=== PATIENT | male | born 1995 | race Caucasian/White ===

== ENCOUNTER → 2017-08-19 | Outpatient (CLI) | payer OTHER | LOC: M ADAMS 13:04 | DX: M25.532 Pain in left wrist (principal) ==

== ENCOUNTER 2020-07-15 11:34 | Emergency (ER) | payer OTHER, BC ==
[~2020-07-15] VITALS: Ht 185.4 cm; Wt 114.0 kg
--- NOTE | 2020-07-15 12:16 | REP ---
INDICATION: head injury. COMPARISON: None. TECHNIQUE: Helical scanning is acquired. 5 mm axial images were reformatted. Coronal MPR images were generated. FINDINGS: Bone window settings demonstrate an intact bony calvarium. There is no evidence of skull fracture or incidental bony calvarial lesion. The visualized paranasal sinuses appear clear. No intraorbital abnormality is seen. On soft tissue window setting images; the lateral, third, and fourth ventricles are normal in size and position. Kang-white differentiation pattern is normal above and below the tentorium. There are is no evidence of intracranial hemorrhage. No mass, edema, infarction, or midline shift is seen. No extra-axial fluid collection is appreciated. IMPRESSION: Negative noncontrast head CT. <Electronically signed by Vivek Pineda > 07/15/20 [id number]
[2020-07-15] MEDS: ONDANSETRON 4 MG TAB PO ONE ×2 (12:52→12:57)
[2020-07-15] MEDS ORDERED: ZOFR4TAB16 PO (13:05)
[2020-07-15 13:17] VITALS: BP 123/86
== END 2020-07-15 13:26 | disposition home or self-care (01) ==
LOC: M ED 11:34
DX: S00.93XA Contusion of unspecified part of head, initial encounter (principal); W22.8XXA Striking against or struck by other objects, initial encounter; Y92.89 Other specified places as the place of occurrence of the external cause; Y93.9 Activity, unspecified; Y99.0 Civilian activity done for income or pay; Z88.0 Allergy status to penicillin

== ENCOUNTER 2021-08-15 11:52 | Emergency (ER) | payer OTHER, BC ==
[~2021-08-15] VITALS: Ht 185.4 cm; Wt 102.3 kg
[~2021-08-15 11:52] MED LIST: ZOFR4TAB16 PO
[2021-08-15] MEDS ORDERED: REST0.05 OP (11:58)
[2021-08-15] MEDS: ONDANSETRON 4 MG ORAL DISINTEGRATING TAB PO ONE (13:16)
[2021-08-15] MEDS ORDERED: ONDA4TAB6 PO (13:25)
[2021-08-15 13:41] VITALS: BP 134/83
== END 2021-08-15 13:43 | disposition home or self-care (01) ==
LOC: M ED 11:52
DX: S06.0X0A Concussion without loss of consciousness, initial encounter (principal); S00.03XA Contusion of scalp, initial encounter; W22.09XA Striking against other stationary object, initial encounter; Y92.59 Other trade areas as the place of occurrence of the external cause; Y93.89 Activity, other specified; Y99.8 Other external cause status; Z79.899 Other long term (current) drug therapy
CPT/HCPCS: 70450; 99283; Q0162

== ENCOUNTER 2021-11-26 15:08 | Emergency (ER) | payer BC, OTHER ==
[~2021-11-26] VITALS: Ht 185.4 cm; Wt 111.0 kg
[~2021-11-26 15:08] MED LIST changes: +ONDA4TAB6 PO; +REST0.05 OP
[2021-11-26] MEDS ORDERED: LIDOCAINE 5% (LIDODERM) PATCH TD ONE (16:25)
[2021-11-26] MEDS ORDERED: diazePAM 10 MG TAB PO ONE (16:25)
[2021-11-26] MEDS ORDERED: KETOROLAC 60MG 2ML VIAL IM ONE (16:25)
[2021-11-26] MEDS ORDERED: ASPE4PAD TOP (17:49)
[2021-11-26] MEDS ORDERED: NAPR-837 PO (17:49)
[2021-11-26] MEDS ORDERED: PRED20TA PO (17:49)
[2021-11-26] MEDS ORDERED: METH-1165 PO (17:49)
[2021-11-26 17:57] VITALS: BP 136/65
[2021-11-27] MEDS ORDERED: **NOTE PATIENT COMMENT** MISC XX ONE (05:00)
== END 2021-11-26 18:03 | disposition home or self-care (01) ==
LOC: M ED 15:08
DX: M54.50 Low back pain, unspecified (principal); Z88.1 Allergy status to other antibiotic agents; Z79.899 Other long term (current) drug therapy
CPT/HCPCS: 72110; 96372; 99283; J1885

== ENCOUNTER → 2023-04-26 | Outpatient (CLI) | payer BC, OTHER ==
[~2023-04-26] MED LIST changes: +ASPE4PAD TOP; +METH-1165 PO; +NAPR-837 PO; +PRED20TA PO
== END ==
LOC: M RAD 09:57
PROVIDERS: ATTEND Physician Assistant Medical
DX: J02.9 Acute pharyngitis, unspecified (principal)

== ENCOUNTER → 2023-08-09 | Outpatient (CLI) | payer BC, OTHER ==
[~2023-08-09] MED LIST changes: +GASTROGRAFIN SOLUTION 30ML As Ordered ONE; +ISOVUE-370 76% 100ML VIAL As Ordered ONE
== END ==
LOC: M RAD 07:01
PROVIDERS: ATTEND Physician Assistant Medical
DX: R10.30 Lower abdominal pain, unspecified (principal); R19.7 Diarrhea, unspecified; K57.90 Diverticulosis of intestine, part unspecified, without perforation or abscess without bleeding
CPT/HCPCS: 74177; Q9963; Q9967